=== PATIENT | female | born 1965 | race Caucasian/White ===

== ENCOUNTER → 2016-11-14 | Day surgery (SDC) | payer BC ==
[~2016-11-14] MED LIST: CIPRO500 MG PO; COLACE100 MG PO; COUMADIN5 MG PO; LABETALOL HCL200 MG PO; PERCOCET 10-321 EACH PO; SIMETHICONE80 MG PO; ZANTAC150 MG PO; ZOFRAN4 MG PO
== END | disposition home or self-care (01) ==
LOC: SDC 10-17 08:30
DX: N13.5 Crossing vessel and stricture of ureter without hydronephrosis (principal); N32.9 Bladder disorder, unspecified; Z85.50 Personal history of malignant neoplasm of unspecified urinary tract organ; I10 Essential (primary) hypertension; J45.909 Unspecified asthma, uncomplicated; M19.90 Unspecified osteoarthritis, unspecified site; Z90.49 Acquired absence of other specified parts of digestive tract; Z90.710 Acquired absence of both cervix and uterus; Z88.8 Allergy status to other drugs, medicaments and biological substances
CPT/HCPCS: C1758; C1894; C2617; J1885; J2704; J3370; J7050; Q9967

== ENCOUNTER → 2017-01-02 | Day surgery (SDC) | payer BC | END | disposition home or self-care (01) | LOC: SDC 07:57 | DX: N13.1 Hydronephrosis with ureteral stricture, not elsewhere classified (principal); I10 Essential (primary) hypertension; J45.909 Unspecified asthma, uncomplicated; M19.90 Unspecified osteoarthritis, unspecified site; G47.33 Obstructive sleep apnea (adult) (pediatric); Z86.718 Personal history of other venous thrombosis and embolism; Z90.89 Acquired absence of other organs; Z90.49 Acquired absence of other specified parts of digestive tract; Z90.710 Acquired absence of both cervix and uterus; Z79.01 Long term (current) use of anticoagulants; Z79.899 Other long term (current) drug therapy; Z88.8 Allergy status to other drugs, medicaments and biological substances | CPT/HCPCS: C1758; C1894; C2617; J2704; Q9967 ==